=== PATIENT | male | born 1990 | race Caucasian/White ===

== ENCOUNTER 2020-02-08 20:34 | Emergency (ER) | payer MEDICAID, SELFPAY ==
[~2020-02-08] VITALS: Ht 177.8 cm; Wt 77.1 kg
[2020-02-08 20:40] VITALS: BP_SYST 128
--- NOTE | 2020-02-08 20:40 | NUR ---
Patient to ER bed MALDONADO to gown for evaluation. Side rails up. Report given to RONNIE STRINGER.
--- NOTE | 2020-02-08 20:50 | NUR ---
pt in [place], in custody. No acute distess noted. C/O flank pain Addendum: 02/08/20 at 2054 by PHIL C/O headache
[2020-02-08] MEDS ORDERED: ACETAMINOPHEN 325 MG TABLET PO ONE (22:00)
--- NOTE | 2020-02-08 22:28 | NUR ---
pt A/O and no distress. VSMacario, kacy lopez dc'd. Pt clear for booking released to [employer] officers.
--- NOTE | 2020-02-08 22:29 | NUR ---
Patient given written and verbal discharge instructions and verbalizes understanding. ER MD Dr. Morris discussed with patient the results and treatment provided. Patient in stable condition. ID arm band removed. Patient educated on pain management and to follow up with PMD. Pain Scale 0/10. Opportunity for questions provided and answered. Medication side effect fact sheet provided.
[2020-02-08 22:31] VITALS: BP_SYST 128
== END 2020-02-08 22:29 ==
LOC: SED 20:34 → EEVIPCON 20:34 → SED 22:29
DX: R51 Headache (principal); F41.9 Anxiety disorder, unspecified; F12.90 Cannabis use, unspecified, uncomplicated; F17.200 Nicotine dependence, unspecified, uncomplicated; F11.90 Opioid use, unspecified, uncomplicated; Z20.828 Contact with and (suspected) exposure to other viral communicable diseases
CPT/HCPCS: 99283

== ENCOUNTER 2020-02-09 14:09 | Emergency (ER) | payer MEDICAID ==
[~2020-02-09] VITALS: Ht 177.8 cm; Wt 77.1 kg
[2020-02-09] MEDS ORDERED: NACL 0.9% 1,000 ML IV ONE (14:30)
[2020-02-09 14:32] VITALS: BP_SYST 115
[2020-02-09 15:23] LABS: BASOPHILS # (AUTO) 0.1 K/uL (0.0-0.2); BASOPHILS % (AUTO) 0.8 % (0.0-2.0); EOSINOPHILS % (AUTO) 0.3 % (0.0-4.0); HEMOGLOBIN 15.4 g/dL (14.0-18.0); LYMPHOCYTES # (AUTO) 1.1 K/uL (1.0-5.5); LYMPHOCYTES % (AUTO) 14.3 % (20.5-51.5); MEAN CORPUSCULAR HEMOGLOBIN 29 pg (27-31); MEAN CORPUSCULAR HGB CONC 34 % (32-36); MEAN CORPUSCULAR VOLUME 86 fL (79.0-98.0); MONOCYTES # (AUTO) 0.3 K/uL (0.0-1.0); MONOCYTES % (AUTO) 3.4 % (1.7-9.3); NEUTROPHILS # (AUTO) 6.4 K/uL (1.8-7.7); NEUTROPHILS % (AUTO) 81.2 % (40.0-70.0); PLATELET COUNT (AUTO) 386 K/uL (130-430); RED BLOOD CELL COUNT(AUTO) 5.36 MIL/uL (4.2-6.2); RED CELL DISTRIBUTION WIDTH 13.1 % (9.0-15.0); WHITE BLOOD COUNT (AUTO) 7.9 K/uL (4.8-10.8)
[2020-02-09 15:26] LABS: CALCIUM 9.3 mg/dL (8.4-11.0); CREATININE 0.89 mg/dL (0.55-1.30); POTASSIUM 4.3 mmol/L (3.5-5.1)
[2020-02-09 15:30] LABS: TOTAL BILIRUBIN 0.8 mg/dL (0.0-1.0)
[2020-02-09 17:46] VITALS: BP_SYST 115
== END 2020-02-09 17:47 ==
LOC: SED 14:09
DX: R53.1 Weakness (principal); R42 Dizziness and giddiness; F32.9 Major depressive disorder, single episode, unspecified; F41.9 Anxiety disorder, unspecified; F11.90 Opioid use, unspecified, uncomplicated
CPT/HCPCS: 36415; 71045; 80053; 82550; 84484; 85025; 93005; 96360; 99285; J7030